=== PATIENT | female | born 1980 | race Caucasian/White ===

== ENCOUNTER 2017-06-27 22:26 | Emergency (ER) | payer BC, MEDICAID ==
[2017-06-28 00:04] LABS: ABSOLUTE EOSINOPHILS # (AUTO) 0.2 10^3/uL (0.0-0.6); ABSOLUTE LYMPHOCYTES (AUTO) 1.4 10^3/uL (0.5-4.7); ABSOLUTE MONOCYTES (AUTO) 0.3 10^3/uL (0.1-1.4); ABSOLUTE NEUT (AUTO) 4.4 10^3/uL (1.7-8.2); BASOPHILS % (AUTO) 0.4 % (0-2); EOSINOPHILS % (AUTO) 3.2 % (0-6); HEMATOCRIT 35.8 % (36.0-47.0); HEMOGLOBIN 12.7 g/dL (12.0-15.5); HGB HCT DIFFERENCE 2.3; LYMPHOCYTES % (AUTO) 21.8 % (13-45); MEAN CORPUSCULAR HGB CONC 35.5 g/dL (32.0-36.0); MEAN CORPUSCULAR VOLUME 90 fl (80-97); MONOCYTES % (AUTO) 5.4 % (3-13); RED BLOOD COUNT 3.98 10^6/uL (3.72-5.28); SEGMENTED NEUTROPHILS % (AUTO) 69.2 % (42-78); WHITE BLOOD COUNT 6.4 10^3/uL (4.0-10.5)
--- NOTE | 2017-06-28 00:04 | RADIOLOGY REPORT (SQ) ---
EXAM DESCRIPTION: CHEST PA/LAT COMPLETED DATE/TIME: 06/27/2017 11:28 pm REASON FOR STUDY: IVC COMPARISON: January 2010 EXAM PARAMETERS: NUMBER OF VIEWS: two views TECHNIQUE: Digital Frontal and Lateral radiographic views of the chest acquired. RADIATION DOSE: NA LIMITATIONS: none FINDINGS: LUNGS AND PLEURA: No opacities, masses or pneumothorax. No pleural effusion. MEDIASTINUM AND HILAR STRUCTURES: No masses or contour abnormalities. HEART AND VASCULAR STRUCTURES: Heart normal size. No evidence for failure. BONES: No acute findings. HARDWARE: None in the chest. OTHER: No other significant finding. IMPRESSION: NO SIGNIFICANT RADIOGRAPHIC FINDING IN THE CHEST. TECHNICAL DOCUMENTATION: JOB ID: [id number] Last Size- All Rights Reserved
[2017-06-28 00:15] LABS: APPEARANCE,URINE CLOUDY; BILIRUBIN,URINE NEGATIVE (NEGATIVE); GLUCOSE, URINE NEGATIVE (NEGATIVE); KETONES,URINE NEGATIVE (NEGATIVE); LEUKOCYTE ESTERASE,URINE LARGE (NEGATIVE); NITRITE,URINE NEGATIVE (NEGATIVE); PROTEIN,URINE NEGATIVE (NEGATIVE); URINE SPECIFIC GRAVITY 1.005; UROBILINOGEN,URINE NEGATIVE mg/dL (<2.0)
[2017-06-28 00:17] LABS: ALANINE AMINOTRANSFERASE 27 U/L (9-52); ALBUMIN 4.8 g/dL (3.5-5.0); ALKALINE PHOSPHATASE 72 U/L (38-126); ANION GAP 13 (5-19); ASPARTATE AMINO TRANSFERASE 18 U/L (14-36); BILIRUBIN,DIRECT 0.4 mg/dL (0.0-0.4); BILIRUBIN,TOTAL 0.4 mg/dL (0.2-1.3); BLOOD UREA NITROGEN 7 mg/dL (7-20); CALCIUM 10.4 mg/dL (8.4-10.2); CARBON DIOXIDE 29 mmol/L (22-30); CHLORIDE 99 mmol/L (98-107); CREATINE KINASE 46 U/L (30-135); GLUCOSE 99 mg/dL (75-110); POTASSIUM 4.1 mmol/L (3.6-5.0); SODIUM 141.3 mmol/L (137-145); TOTAL PROTEIN 7.9 g/dL (6.3-8.2)
--- NOTE | 2017-06-28 00:18 | ER Document Report ---
ED Psych Disorder / Suicide - General Chief Complaint: PSYCH EVALUATION Stated Complaint: LUIS REYES Time Seen by Provider: 06/28/17 00:06 Notes: The patient is a 37-year-old female, PMHx schizophrenia, depression, prior opioid abuse (now on Suboxone), who presents with suicidal ideation and depression. She called mobile crisis to obtain help. She was hospitalized and released 2 weeks ago to psychiatric hospital for similar thoughts and she was given an IM shot of Invega. Patient is hearing voices that are telling her to hurt herself, but she does not have a specific plan. Her depression worsened since April 22 when she broke up with her longtime boyfriend of 13 years. Patient denies current substance abuse, daily alcohol, homicidal ideation, fevers, neck stiffness or headache. TRAVEL OUTSIDE OF THE [place] IN LAST 30 DAYS: No Past Medical History - General Information source: Patient - Social History Smoking Status: Never Smoker Drug Abuse: Heroin - Last used 8 years ago Family History: Reviewed & Not Pertinent Patient has suicidal ideation: Yes Patient has homicidal ideation: Yes Renal/ Medical History: Denies: Hx Peritoneal Dialysis Review of Systems - Review of Systems Notes: REVIEW OF SYSTEMS: CONSTITUTIONAL: -fevers, -chills EENT: -eye pain, -difficulty swallowing, -nasal congestion CARDIOVASCULAR:-chest pain, -syncope. RESPIRATORY: -cough, -SOB GASTROINTESTINAL: -abdominal pain, - nausea, -vomiting, -diarrhea GENITOURINARY: -dysuria, -hematuria MUSCULOSKELETAL: -back pain, -neck pain SKIN: -rash or skin lesions. HEMATOLOGIC: -easy bruising or bleeding. LYMPHATIC: -swollen, enlarged glands. NEUROLOGICAL: -altered mental status or loss of consciousness, -headache, - neurologic symptoms PSYCHIATRIC: -anxiety, +depression, +SI ALL OTHER SYSTEMS REVIEWED AND NEGATIVE. Physical Exam - Vital signs Vitals: Temp Pulse Resp BP Pulse Ox 98.4 F 78 16 130/86 H 99 06/27/17 23:12 06/27/17 23:12 06/27/17 23:12 06/27/17 23:12 06/27/17 23:12 - Notes Notes: PHYSICAL EXAMINATION: GENERAL: Well-appearing, well-nourished and in no acute distress. HEAD: Atraumatic, normocephalic. EYES: Pupils equal round and reactive to light, extraocular movements intact, sclera anicteric, conjunctiva are normal. ENT: nares patent, oropharynx clear without exudates. Moist mucous membranes. NECK: Normal range of motion, supple without lymphadenopathy LUNGS: Breath sounds clear to auscultation bilaterally and equal. No wheezes rales or rhonchi. HEART: Regular rate and rhythm without murmurs ABDOMEN: Soft, nontender, normoactive bowel sounds. No guarding, no rebound. No masses appreciated. EXTREMITIES: Normal range of motion, no pitting or edema. No cyanosis. NEUROLOGICAL: Cranial nerves grossly intact. Normal speech, normal gait. Normal sensory and motor exams. PSYCH: Depressed mood. Suicidal thoughts. SKIN: Warm, Dry, normal turgor, no rashes or lesions noted. Course - Re-evaluation Re-evalutation: 06/28/17 00:28 Pt presents with suicidal ideation and depression. She is hearing voices while in the ER telling her to hurt herself. Will place patient on IVC and have her evaluated by mental health in the morning. - Vital Signs Vital signs: Temp Pulse Resp BP Pulse Ox 98.4 F 78 16 130/86 H 99 06/27/17 23:12 06/27/17 23:12 06/27/17 23:12 06/27/17 23:12 06/27/17 23:12 - Laboratory Result Diagrams: 06/27/17 23:50 06/27/17 23:50 Laboratory results interpreted by me: 06/27/17 06/27/17 06/27/17 23:50 23:50 23:50 Hct 35.8 L Calcium 10.4 H Urine Blood Ur Leukocyte Esterase Salicylates < 1.0 L Acetaminophen < 10 L 06/27/17 23:55 Hct Calcium Urine Blood SMALL H Ur Leukocyte Esterase LARGE H Salicylates Acetaminophen Discharge - Discharge Clinical Impression: Suicidal ideation Condition: Stable Disposition: PSYCH HOSP/UNIT
[2017-06-28 00:29] LABS: CREATINE KINASE MB 1.22 ng/mL (<4.55)
[2017-06-28 00:30] LABS: TROPONIN I < 0.012 ng/mL
[2017-06-28 00:31] LABS: ALCOHOL < 10 mg/dL (NONE DETECTED)
[2017-06-28 01:39] LABS: URINE BARBITURATES SCREEN NEGATIVE; URINE METHADONE SCREEN NEGATIVE; URINE OPIATES LOW NEGATIVE; URINE PHENCYCLIDINE SCREEN NEGATIVE
--- NOTE | 2017-06-28 10:14 | ER Document Report ---
Doctor's Note Notes: 06/28/17 10:10 Rounds: Chart reviewed and patient interviewed. Patient is walking about her room aimlessly. Answers questions and recalls that she was hospitalized a couple of weeks ago. Affect flat. Patient is being evaluated for suicidal thoughts and a history of schizophrenia and depression and opioid abuse. Patient's urinalysis looks like a UTI. Patient says she is not having any symptoms that would suggest a UTI. I have ordered a culture and starting the patient on Macrobid 100 mg twice a day. Patient's vital signs are normal except for a pulse of 106. Patient appears to be medically stable for transfer or discharge. Dawood Cardenas MD
[2017-06-28] MEDS ORDERED: NITROFURANTOIN MONOHYD/M-CRYST 100 MG CAPSULE PO SCH (10:15)
--- NOTE | 2017-06-28 12:24 | EKG REPORT ---
SEVERITY:- NORMAL ECG - SINUS RHYTHM : Confirmed by: Yancy Anthony MD 28-Jun-2017 12:23:39
[2017-06-28 14:17] VITALS: BP 132/88
== END 2017-06-28 14:19 | disposition home or self-care (01) ==
LOC: ER 22:26
DX: N39.0 Urinary tract infection, site not specified (principal); F31.30 Bipolar disorder, current episode depressed, mild or moderate severity, unspecified; R45.851 Suicidal ideations; Z65.9 Problem related to unspecified psychosocial circumstances; F11.20 Opioid dependence, uncomplicated
CPT/HCPCS: 36415; 71020; 80053; 80307; 81001; 81025; 82550; 82553; 84484; 85025; 87086; 93005; 93010; 99285

== ENCOUNTER 2019-11-15 02:44 | Emergency (ER) | payer MEDICAID ==
[2019-11-15 03:06] VITALS: BP 122/77
[2019-11-15 08:07] LABS: ABSOLUTE MONOCYTES (AUTO) 0.4 10^3/uL (0.1-1.4); ABSOLUTE NEUT (AUTO) 5.5 10^3/uL (1.7-8.2); BASOPHILS % (AUTO) 0.4 % (0-2); EOSINOPHILS % (AUTO) 0.1 % (0-6); HEMATOCRIT 39.3 % (36.0-47.0); HEMOGLOBIN 13.6 g/dL (12.0-15.5); LYMPHOCYTES % (AUTO) 14.7 % (13-45); MEAN CORPUSCULAR HEMOGLOBIN 30.2 pg (27.0-33.4); MEAN CORPUSCULAR HGB CONC 34.7 g/dL (32.0-36.0); MEAN CORPUSCULAR VOLUME 87 fl (80-97); MONOCYTES % (AUTO) 5.1 % (3-13); PLATELET COUNT 220 10^3/uL (150-450); RED BLOOD COUNT 4.51 10^6/uL (3.72-5.28); RED CELL DISTRIBUTION WIDTH 13.1 % (11.5-14.0); SEGMENTED NEUTROPHILS % (AUTO) 79.7 % (42-78); TOTAL CELLS COUNTED % (AUTO) 100 %; WHITE BLOOD COUNT 6.9 10^3/uL (4.0-10.5)
[2019-11-15 08:39] LABS: ALBUMIN 4.1 g/dL (3.5-5.0); ALKALINE PHOSPHATASE 91 U/L (38-126); ANION GAP 10 (5-19); ASPARTATE AMINO TRANSFERASE 24 U/L (14-36); BILIRUBIN,DIRECT 0.3 mg/dL (0.0-0.4); BILIRUBIN,TOTAL 0.5 mg/dL (0.2-1.3); BLOOD UREA NITROGEN 12 mg/dL (7-20); CALCIUM 9.5 mg/dL (8.4-10.2); CARBON DIOXIDE 29 mmol/L (22-30); CHLORIDE 103 mmol/L (98-107); GLUCOSE 153 mg/dL (75-110); POTASSIUM 3.6 mmol/L (3.6-5.0); TOTAL PROTEIN 7.8 g/dL (6.3-8.2)
--- NOTE | 2019-11-15 10:02 | ER Document Report ---
ED General <ABRAHAM MENDES - Last Filed: 11/15/19 12:53> - General TRAVEL OUTSIDE OF THE [place] IN LAST 30 DAYS: No <KATHY RUIZ - Last Filed: 11/15/19 20:38> - General Chief Complaint: Dizziness Stated Complaint: MALAISE,DIZZINESS Time Seen by Provider: 11/15/19 09:44 Primary Care Provider: [facility] [Outside] - Follow up as needed Notes: Patient is a 39-year-old female who presents to the emergency department with a chief complaint of "weakness." Patient states that she has felt weak for the past week. Patient initially did not elaborate much on her symptoms. Patient states that she does have a history of schizophrenia and she is not currently on her medications. She states that she ran out of her medications. She does not know which medication she is supposed to take. Patient is requesting to go to [facility] in [place]. Patient also admitted that she is a heroin addict and she last took heroin yesterday. Patient states that she has felt nausea and vomited, but she was able to tolerate juice and crackers here in the emergency department keep them down. Patient states that she is homeless. Patient states that she is suicidal, but does not have any plan at this time. (KATHY RUIZ) - Related Data Allergies/Adverse Reactions: No Known Allergies Allergy (Verified 11/15/19 15:13) Past Medical History - General Information source: Patient - Social History Smoking Status: Former Smoker Family History: Reviewed & Not Pertinent Patient has suicidal ideation: No Patient has homicidal ideation: No Renal/ Medical History: Denies: Hx Peritoneal Dialysis Psychiatric Medical History: Reports: Hx Depression - schizophrenia <KATHY RUIZ - Last Filed: 11/15/19 20:38> Review of Systems <KATHY RUIZ - Last Filed: 11/15/19 20:38> - Review of Systems Notes: REVIEW OF SYSTEMS: CONSTITUTIONAL : Denies recent illness. Denies recent unintentional weight loss. Denies fever, chills, or sweats. EENT: Denies eye, ear, throat, or mouth pain, discharge, or symptoms. Denies nasal or sinus congestion. CARDIOVASCULAR: Denies chest pain. RESPIRATORY: Denies shortness of breath, cough, congestion, difficulty breathing, or wheezing. GASTROINTESTINAL: Denies nausea, vomiting, and diarrhea. Denies abdominal pain. Denies constipation. GENITOURINARY: Denies difficulty urinating, burning, blood in urine, urgency or frequency. MUSCULOSKELETAL: Denies neck and back pain. Denies joint pain or swelling. SKIN: Denies rash, itchiness, or lesions HEMATOLOGIC : Denies easy bruising or bleeding. LYMPHATIC: Denies swollen, painful, enlarged glands. NEUROLOGICAL: Denies no numbness or tingling denies weakness. Denies headache. Denies altered mental status. Denies alteration in speech. PSYCHIATRIC: See HPI. All other systems reviewed and negative. (KATHY RUIZ) Physical Exam <KATHY RUIZ - Last Filed: 11/15/19 20:38> - Vital signs Vitals: Temp Pulse Resp BP Pulse Ox 98.6 F 96 16 122/77 99 11/15/19 03:04 11/15/19 03:04 11/15/19 03:04 11/15/19 03:04 11/15/19 03:04 - Notes Notes: PHYSICAL EXAMINATION: GENERAL: Appears well, healthy, well-nourished, no acute distress. HEAD: Normocephalic, atraumatic. EYES: PERRL, conjunctiva normal, all extraocular movements intact, sclera nonicteric ENT: Moist mucous membranes. NECK: Supple, no noticeable swelling, redness, rash. Normal range of motion. LUNGS: Equal breath sounds bilaterally and clear to auscultation. No wheezes rales or rhonchi. CARDIOVASCULAR: S1-S2, regular rate, regular rhythm. Radial pulses 2+, normal. ABDOMEN: Normoactive bowel sounds. Soft, nontender, no guarding, no rebound tenderness, and no masses palpated. EXTREMITIES: Normal strength and range of motion, no pitting or edema. No cyanosis. NEUROLOGICAL: Moves all extremities upon command. Strength 5/5 in all extremities. PSYCH: Withdrawn, not very talkative. SKIN: Warm, dry. No rash, lesions, ulcerations noted. Normal skin turgor. (KATHY RUIZ) Course - Laboratory Result Diagrams: 11/15/19 07:55 11/15/19 07:55 <ABRAHAM MENDES - Last Filed: 11/15/19 12:53> - Laboratory Result Diagrams: 11/15/19 07:55 11/15/19 07:55 <JOSEPHALFREDOKATHY Corrie - Last Filed: 11/15/19 20:38> - Re-evaluation Re-evalutation: 11/15/19 20:37 Patient's hematology does not show a leukocytosis, but she has a left shift with neutrophils at 79.7%. Chemistries are unremarkable. Urinalysis shows a moderate amount of leukocytes, although this is a contaminated sample as the patient has 244 squamous cells. She also has yeast. Patient will be started on Keflex. Patient is also positive for opiates. Mental health has evaluated the patient and they state that she is stable for discharge mental health [facility]. She was given resources for outpatient care. I have a very low suspicion for any life-threatening etiology at this time. Follow-up precautions were given. Verbal discharge instructions were given to the patient. They verbalized understanding. They are stable for discharge. (KATHY RUIZ) - Vital Signs Vital signs: Temp Pulse Resp BP Pulse Ox 98.7 F 89 16 122/77 95 11/15/19 15:22 11/15/19 15:22 11/15/19 15:22 11/15/19 03:04 11/15/19 15:22 - Laboratory Laboratory results interpreted by me: 11/15/19 11/15/19 11/15/19 07:55 07:55 07:55 Seg Neutrophils % 79.7 H Creatinine 0.51 L Glucose 153 H Urine Protein Urine Ketones Urine Blood Urine Urobilinogen Ur Leukocyte Esterase Salicylates < 1.0 L Acetaminophen < 10 L 11/15/19 11:15 Seg Neutrophils % Creatinine Glucose Urine Protein 30 H Urine Ketones TRACE H Urine Blood SMALL H Urine Urobilinogen 4.0 H Ur Leukocyte Esterase MODERATE H Salicylates Acetaminophen - EKG Interpretation by Me Additional EKG results interpreted by me: 11/15/19 12:46 Sinus tachycardia. Heart rate 102. VA 116; QRS 82; QT 368; QTc 480. No change from previous EKG done on 06/28/2017. (KATHY RUIZ) Discharge <ABRAHAM MENDES - Last Filed: 11/15/19 12:53> <KATHY RUIZ - Last Filed: 11/15/19 20:38> - Discharge Clinical Impression: Urinary tract infection Qualifiers: Urinary tract infection type: acute cystitis Hematuria presence: without hematuria Qualified Code(s): N30.00 - Acute cystitis without hematuria Condition: Stable Disposition: HOME, SELF-CARE Additional Instructions: You have been evaluated by both medical and behavioral health teams for suicidal ideation and have been deemed appropriate for discharge. While in the emergency department you received the following services: Medical screening and assessment, nursing services, dietary services, pharmacological services, one-on-one counseling and/or psychotherapy, and environmental services. You were provided with resources for outpatient mental health resource list, substance abuse treatment/detox, and a community resources. You are encouraged to follow up with an outpatient mental health provider for mental health services to induce substance abuse treatment. The contact information for mobile crisis has been provided. Your urine shows findings consistent with a urinary tract infection. Please take all the antibiotics as directed even if your symptoms have improved. Please follow-up with your primary care physician as needed. Return to emergency room if you develop fever >101F, persistent vomiting, become lethargi c, have severe pain in your sides, or any other symptoms that are concerning to you. Also have a yeast infection. Please take your medication as prescribed. NARCOTIC / OPIOD ABUSE: Narcotics and opiods are pain-relieving drugs that are often abused. They are addicting. Narcotics cause euphoria, but it often takes increasing amounts to "feel good" and avoid withdrawal symptoms. Overdose of narcotics causes small pupils, coma, and decreased breathing. It's a common cause of . Purity of street narcotics is unpredictable. Injection of narcotics is risky for abscesses, endocarditis (heart infection), pneumonia, and AIDS. Withdrawal from narcotics causes goose bumps, watery mouth, sweating, nasal congestion, muscle aches, abdominal cramps, vomiting, and diarrhea. There's often restlessness and confusion. Treatment programs are available, but you must make the decision to quit. Medication (such as clonidine) can be prescribed to control the symptoms of withdrawal. SUICIDAL IDEATION: Suicidal ideation is a common medical term for thoughts about suicide, which may be as detailed as a formulated plan, without the suicidal act itself. Although most people who undergo suicidal ideation do not commit suicide, some go on to make suicide attempts. The range of suicidal ideation varies greatly from fleeting to detailed planning, role playing, and unsuccessful attempts. While thoughts about suicide are common, most people do not carry out serious actions to commit suicide. Based upon your evaluation and discussion with you, we do not believe you are currently at risk to act upon your thoughts of suicide. You have agreed to return to the Emergency Department, at any time, if you feel inclined to act upon your suicidal thoughts. AT ANY TIME, IF YOUR SYMPTOMS CHANGE SIGNIFICANTLY OR WORSEN OR YOU DEVELOP NEW SYMPTOMS, RETURN TO THE EMERGENCY DEPARTMENT IMMEDIATELY FOR RE-EVALUATION. Prescriptions: Fluconazole [Diflucan 100 mg Tablet] 200 mg PO ASDIR #1 tablet Cephalexin [Keflex] 500 mg PO BID #14 capsule Referrals: [facility] [Outside] - Follow up as needed
[2019-11-15] MEDS ORDERED: HALOPERIDOL LACTATE INJ 5 MG/1 ML VIAL IM ONE (11:03)
[2019-11-15 11:13] LABS: ACETAMINOPHEN < 10 ug/mL (10-30); ALCOHOL < 10 mg/dL (NONE DETECTED); SALICYLATE < 1.0 mg/dL (2.0-20.0)
[2019-11-15 11:36] LABS: APPEARANCE,URINE TURBID; BILIRUBIN,URINE NEGATIVE (NEGATIVE); COLOR,URINE YELLOW; GLUCOSE, URINE NEGATIVE (NEGATIVE); KETONES,URINE TRACE mg/dL (NEGATIVE); LEUKOCYTE ESTERASE,URINE MODERATE (NEGATIVE); NITRITE,URINE NEGATIVE (NEGATIVE); PROTEIN,URINE 30 mg/dL (NEGATIVE); URINE SPECIFIC GRAVITY 1.013
[2019-11-15] MEDS ORDERED: CEFTRIAXONE INJ 1000 MG VIAL IM ONE (12:09)
[2019-11-15] MEDS ORDERED: LIDOCAINE 1% INJ-PF (10 MG/ML) 30 ML SDV INJ ONE (12:09)
[2019-11-15] MEDS ORDERED: FLUCONAZOLE 100 MG TABLET PO ONE (12:09)
--- NOTE | 2019-11-15 12:53 | PSYCHOLOGICAL NOTE ---
Psych Note - Psych Note Date seen by psych provider: 11/15/19 Time seen by psych provider: 11:20 Psych Note: Patient is a 39-year-old female who presents to ED via EMS for suicidal ideation. Patient was last seen by behavioral health team in 06/30/17 with similar etiology. Patient reports "not feeling great." Patient states she is "mentally confused and weak." Patient states she is experiencing "thoughts that I would not normally think." When asked to elaborate, patient states she saw her mother and thought "she's ugly." Patient states she loves her mother and doesn't think she is ugly. When asked for other examples of thoughts you would not normally think, patient replied, "I looked at my boyfriend and thought I want to have sex with you right now." Patient reports she has sex with her boyfriend on a regular basis. Patient reports heroin use on yesterday. Patient denies suicidal ideation. When asked about auditory/visual hallucinations, patient referenced "looking at people thinking things I wouldn't normally think." Patient denies homicidal ideation. When asked how ED could help, patient requested food and drink. Patient also requested to be transferred to [facility]. Clinician informed patient she could have someone take her to [facility] if she believes that is what she needs. Patient states she lives with her boyfriend, who provides for her basic needs. Patient states she is not currently linked with a mental health provider for medication management or mental health services. Patient reports a mental health diagnosis of Schizophrenia. Patient states she was linked with [facility], but has not been there in 5 months. The [place] Controlled Database shows patient was prescribed a 4 days of Suboxone with last prescription filled on 10/29/2019. Patient's urine drug screen is positive for opioids. Patient requested for clinician to cover her up with a blanket, to which clinician declined. Patient replied that the nurse "had done it." Clinician stated that patient is capable of covering herself up as evidenced by patient covering herself with the blanket. Patient requested clinician close the door. Clinician informed patient that hospital policy states the door has to remain open when there is a behavioral health consult placed. Patient became agitated and stated that she did not need the consult, however quickly changed her mind. When patient was presented with discharge, patient replied, "you can't discharge me." Clinician replied she will be discharged with medically cleared. Patient stated she can't contact her boyfriend because they were arguing and her father will not come pick her up. Patient begged clinician to "take me to [facility]." Clinician again stated that was not possible. Patient is alert and oriented to person, place, time and circumstance. Patient's mood is withdrawn, however when patient' became agitated she was able to raise her voice to get staff attention and make her needs known. Patient denies suicidal and homicidal ideations. Delusions are absent and behavior is congruent with an intact reality based presentation (i.e., organized and linear through processes). There is no observed behavior that suggests patient is responding to internal stimuli. Patient is able to engage in organized, rational thought processes. Patient is able to express needs and wants in a logical manner. Patient denies current auditory and visual hallucinations. Eye contact is limited. Conversational speech is within normal rate, tone, and prosody, however clinician notes patient repeats questions before answering. Intellectual ability appears to be within average range. Attention and concentration are fair. Insight, judgment and impulse control are currently fair. Impression/Plan: Patient is cleared from acute psychiatric services. Patient does not meet minimum threshold for involuntary commitment, therefore a referral to [facility] is not appropriate (denies SI,HI, no observed psychosis. Patient denies suicidal ideation with clinician but endorsed suicidal ideation with no plan to attending physician. There is no observed behavior that suggests patient is responding to internal stimuli. Patient engaged in organized, rational, linear thought processes and was able to express needs and wants in a logical manner as evidenced by her desire for transportation to [facility], desire for a shower, declining discharge, and request for food, and drink. Patient endorses auditory hallucinations however patient's disclosure of symptoms are not congruent with known manifestations of auditory/visual hallucinations. Patient was provided with an outpatient mental health resource list, substance abuse treatment list, and a street sheet resource. Clinician encouraged patient to contact [facility] for medication management (to include Suboxone) and mental health services. Clinician highlighted the contact information for the homeless assisted on the street sheet resource. Patient was informed of mobile crisis services. Dr. Jaramillo was consulted on the care and management of this patient; attending physician is in agreement with recommendations and disposition.
[2019-11-15 13:02] LABS: URINE AMPHETAMINES SCREEN NEGATIVE; URINE BARBITURATES SCREEN NEGATIVE; URINE BENZODIAZEPINES SCREEN NEGATIVE; URINE MARIJUANA (THC) SCREEN NEGATIVE; URINE METHADONE SCREEN NEGATIVE; URINE PHENCYCLIDINE SCREEN NEGATIVE
[2019-11-15 13:12] LABS: URINE COCAINE SCREEN NEGATIVE
--- NOTE | 2019-11-15 20:24 | EKG REPORT ---
SEVERITY:- ABNORMAL ECG - SINUS TACHYCARDIA NONSPECIFIC ST-T CHANGES- INFERIOR LEADS : Confirmed by: Ousmane Campbell MD 15-Nov-2019 20:22:56
== END 2019-11-15 14:50 | disposition home or self-care (01) ==
LOC: ER 02:44
DX: N30.00 Acute cystitis without hematuria (principal); R42 Dizziness and giddiness; R53.1 Weakness
CPT/HCPCS: 93005; 99285; 96372; 36415; 80307 ×4; 85025; 80053; 81001; 93010; J1630; J3490 ×2; J0696

== ENCOUNTER 2019-11-15 14:56 | Emergency (ER) | payer MEDICAID ==
[2019-11-15 15:05] VITALS: BP 107/83
--- NOTE | 2019-11-15 15:19 | ER Document Report ---
ED Medical Screen (RME) - General Chief Complaint: Weakness Stated Complaint: WEAKNESS Time Seen by Provider: 11/15/19 15:14 TRAVEL OUTSIDE OF THE [place] IN LAST 30 DAYS: No - HPI Notes: 11/15/19 15:17 Patient is a 39-year-old female heroin user and currently homeless who was just cleared by medical and mental health rechecked her self back in for feeling "disoriented, confused, weak." Charge nurse has been notified and they will work with /case management. I have treated and performed a rapid initial assessment of this patient. A comprehensive ED assessment and evaluation of the patient, analysis of test results and completion of medical decision making process will be conducted by additional ED providers. PHYSICAL EXAMINATION: GENERAL: Well-appearing, well-nourished and in no acute distress. A&Ox4. Answers questions appropriately. - Related Data Allergies/Adverse Reactions: No Known Allergies Allergy (Verified 11/15/19 15:13) Past Medical History Renal/ Medical History: Denies: Hx Peritoneal Dialysis Psychiatric Medical History: Reports: Hx Depression - schizophrenia Physical Exam - Vital signs Vitals: Temp Pulse Resp BP Pulse Ox 99.2 F 69 20 107/83 98 11/15/19 15:02 11/15/19 15:02 11/15/19 15:02 11/15/19 15:02 11/15/19 15:02 Course - Vital Signs Vital signs: Temp Pulse Resp BP Pulse Ox 99.2 F 69 20 107/83 98 11/15/19 15:02 11/15/19 15:02 11/15/19 15:02 11/15/19 15:02 11/15/19 15:02
--- NOTE | 2019-11-15 16:26 | ER Document Report ---
HPI - HPI Time Seen by Provider: 11/15/19 15:14 Pain Level: Denies Context: Patient is a 39-year-old female who presents to the emergency department with a chief complaint of weakness and dizziness. She has a history of heroin use. She was seen here in the emergency department by myself. Please see previous note from last visit, which was earlier today. - CONSTITUTIONAL Constitutional: DENIES: Fever, Chills - EENT EENT: DENIES: Sore Throat, Ear Pain, Congestion - NEURO Neurology: REPORTS: Weakness. DENIES: Headache - CARDIOVASCULAR Cardiovascular: DENIES: Chest pain - RESPIRATORY Respiratory: DENIES: Trouble Breathing, Coughing - GASTROINTESTINAL Gastrointestinal: DENIES: Abdominal Pain, Nausea, Patient vomiting - MUSCULOSKELETAL Musculoskeletal: DENIES: Extremity pain, Back Pain - DERM Skin Color: Normal Skin Problems: None Past Medical History - General Information source: Patient - Social History Smoking Status: Current Every Day Smoker Drug Abuse: Heroin Family History: Reviewed & Not Pertinent Patient has suicidal ideation: No Patient has homicidal ideation: No Renal/ Medical History: Denies: Hx Peritoneal Dialysis Psychiatric Medical History: Reports: Hx Depression - schizophrenia Vertical Provider Document - CONSTITUTIONAL Agree With Documented VS: Yes Exam Limitations: No Limitations General Appearance: No Apparent Distress - INFECTION CONTROL TRAVEL OUTSIDE OF THE [place] IN LAST 30 DAYS: Yes - HEENT HEENT: Atraumatic, Normocephalic, PERRLA - NECK Neck: Normal Inspection - RESPIRATORY Respiratory: Breath Sounds Normal, No Respiratory Distress - CARDIOVASCULAR Cardiovascular: Regular Rate, Regular Rhythm Pulses: Normal: Radial - MUSCULOSKELETAL/EXTREMETIES Musculoskeletal/Extremeties: FROM - NEURO Level of Consciousness: Awake, Alert, Appropriate Motor/Sensory: No Motor Deficit, No Sensory Deficit - DERM Integumentary: Warm, Dry, No Rash Course - Re-evaluation Re-evalutation: 11/15/19 16:24 unit manager rn, Ramsey Hilario RN visited with the patient and spoke to her about resources. I also educated the patient on resources. I have very low suspicion for any life-threatening etiology at this time. Patient denies any suicidal or homicidal ideation. Follow-up precautions were given. Verbal discharge instructions were given to the patient. They verbalized understanding. They are stable for discharge. - Vital Signs Vital signs: Temp Pulse Resp BP Pulse Ox 99.2 F 69 20 107/83 98 11/15/19 15:02 11/15/19 15:02 11/15/19 15:02 11/15/19 15:02 11/15/19 15:02 Discharge - Discharge Clinical Impression: Weakness Condition: Stable Disposition: HOME, SELF-CARE Additional Instructions: You are seen here in the emergency department again for the same symptoms. Please get your prescriptions filled. You received resources on where to go for help on mental health and substance abuse.
== END 2019-11-15 16:34 | disposition home or self-care (01) ==
LOC: ER 14:56
DX: R53.1 Weakness (principal); R42 Dizziness and giddiness; Z59.0 Homelessness
CPT/HCPCS: 99283

== ENCOUNTER 2019-11-20 09:54 | Emergency (ER) | payer MEDICAID ==
[2019-11-20 10:30] VITALS: BP 134/78
--- NOTE | 2019-11-20 10:38 | ER Document Report ---
ED Medical Screen (RME) - General Chief Complaint: General Weakness Stated Complaint: GENERAL WEAKNESS Time Seen by Provider: 11/20/19 10:34 Notes: 39-year-old female presents with generalized weakness for 5 days. Patient states she has had the "flu" for 5 days. Pt is poor historian and requires being asked questions multiple times. RRR. Lungs CTA bilaterally. I have greeted and performed a rapid initial assessment of this patient. A comp rehensive ED assessment and evaluation of the patient, analysis of test results and completion of the medical decision making process with be conducted by additional ED providers. TRAVEL OUTSIDE OF THE [place] IN LAST 30 DAYS: Yes - Related Data Allergies/Adverse Reactions: No Known Allergies Allergy (Verified 11/20/19 10:32) Past Medical History Renal/ Medical History: Denies: Hx Peritoneal Dialysis Psychiatric Medical History: Reports: Hx Depression - schizophrenia Physical Exam - Vital signs Vitals: Temp Pulse Resp BP Pulse Ox 98.4 F 95 18 134/78 H 97 11/20/19 10:24 11/20/19 10:24 11/20/19 10:24 11/20/19 10:24 11/20/19 10:24 Course - Vital Signs Vital signs: Temp Pulse Resp BP Pulse Ox 98.4 F 95 18 134/78 H 97 11/20/19 10:24 11/20/19 10:24 11/20/19 10:24 11/20/19 10:24 11/20/19 10:24
[2019-11-20 12:02] LABS: ABSOLUTE EOSINOPHILS # (AUTO) 0.2 10^3/uL (0.0-0.6); ABSOLUTE LYMPHOCYTES (AUTO) 2.2 10^3/uL (0.5-4.7); ABSOLUTE MONOCYTES (AUTO) 0.7 10^3/uL (0.1-1.4); ABSOLUTE NEUT (AUTO) 7.7 10^3/uL (1.7-8.2); BASOPHILS % (AUTO) 0.2 % (0-2); EOSINOPHILS % (AUTO) 1.5 % (0-6); HEMATOCRIT 44.4 % (36.0-47.0); HEMOGLOBIN 15.6 g/dL (12.0-15.5); LYMPHOCYTES % (AUTO) 20.8 % (13-45); MEAN CORPUSCULAR HEMOGLOBIN 30.6 pg (27.0-33.4); MEAN CORPUSCULAR HGB CONC 35.2 g/dL (32.0-36.0); MEAN CORPUSCULAR VOLUME 87 fl (80-97); MONOCYTES % (AUTO) 6.4 % (3-13); PLATELET COUNT 254 10^3/uL (150-450); RED BLOOD COUNT 5.11 10^6/uL (3.72-5.28); RED CELL DISTRIBUTION WIDTH 13.1 % (11.5-14.0); SEGMENTED NEUTROPHILS % (AUTO) 71.1 % (42-78); TOTAL CELLS COUNTED % (AUTO) 100 %; WHITE BLOOD COUNT 10.8 10^3/uL (4.0-10.5)
[2019-11-20 12:21] LABS: A TYPE INFLUENZA AG NEGATIVE (NEGATIVE); B INFLUENZA AG NEGATIVE (NEGATIVE)
[2019-11-20 12:23] LABS: ALBUMIN 4.7 g/dL (3.5-5.0); ALKALINE PHOSPHATASE 100 U/L (38-126); ANION GAP 10 (5-19); ASPARTATE AMINO TRANSFERASE 27 U/L (14-36); BILIRUBIN,TOTAL 0.8 mg/dL (0.2-1.3); BLOOD UREA NITROGEN 17 mg/dL (7-20); CALCIUM 9.9 mg/dL (8.4-10.2); CARBON DIOXIDE 28 mmol/L (22-30); CHLORIDE 102 mmol/L (98-107); GLUCOSE 88 mg/dL (75-110); POTASSIUM 4.4 mmol/L (3.6-5.0); TOTAL PROTEIN 8.6 g/dL (6.3-8.2)
[2019-11-20 12:24] LABS: URINE AMPHETAMINES SCREEN NEGATIVE; URINE BARBITURATES SCREEN NEGATIVE; URINE BENZODIAZEPINES SCREEN NEGATIVE; URINE COCAINE SCREEN NEGATIVE; URINE MARIJUANA (THC) SCREEN NEGATIVE; URINE METHADONE SCREEN NEGATIVE; URINE PHENCYCLIDINE SCREEN NEGATIVE
--- NOTE | 2019-11-20 14:26 | ER Document Report ---
Entered by CAMDEN ALVARADO SCRIBE 11/20/19 [id number] Acting as scribe for:SREE FIGUEROA DO ED General - General Chief Complaint: Flu Symptoms Stated Complaint: GENERAL WEAKNESS Time Seen by Provider: 11/20/19 10:34 Information source: Patient Notes: This 39 year old female patient presents to the emergency department today with complaints of feeling generally weak for x10 days. Patient was seen for this x5 days ago twice here in this ED. Patient has a history of heroin abuse although she states that she has not used heroin since that discharge. Patient is an incredibly poor historian so obtaining any meaningful history is difficult. TRAVEL OUTSIDE OF THE [place] IN LAST 30 DAYS: No - Related Data Allergies/Adverse Reactions: No Known Allergies Allergy (Verified 11/20/19 10:32) Past Medical History - General Information source: Patient - Social History Smoking Status: Current Every Day Smoker Cigarette use (# per day): Yes Chew tobacco use (# tins/day): Yes Frequency of alcohol use: Social Drug Abuse: None Family History: Reviewed & Not Pertinent Patient has suicidal ideation: No Patient has homicidal ideation: No Renal/ Medical History: Denies: Hx Peritoneal Dialysis Psychiatric Medical History: Reports: Hx Depression - schizophrenia Review of Systems - Review of Systems Constitutional: See HPI, Malaise EENT: No symptoms reported Cardiovascular: No symptoms reported Respiratory: No symptoms reported Gastrointestinal: No symptoms reported Genitourinary: No symptoms reported Female Genitourinary: No symptoms reported Musculoskeletal: No symptoms reported Skin: No symptoms reported Hematologic/Lymphatic: No symptoms reported Neurological/Psychological: No symptoms reported -: Yes All other systems reviewed and negative Physical Exam - Vital signs Vitals: Temp Pulse Resp BP Pulse Ox 98.4 F 95 18 134/78 H 97 11/20/19 10:24 11/20/19 10:24 11/20/19 10:24 11/20/19 10:24 11/20/19 10:24 - Notes Notes: Physical Exam: General: Alert, appears well. HEENT: Normocephalic. Atraumatic. PERRL. Extraocular movements intact. No posterior oropharynx erythema or exudate, airway is patent. TMs are clear and non-bulging bilaterally. Neck: Supple. Non-tender. Respiratory: No respiratory distress. Clear and equal breath sounds bilaterally. Cardiovascular: Regular rate and rhythm. Abdominal: Normal Inspection. Non-tender. No distension. Normal Bowel Sounds. Back: No gross abnormalities. Extremities: Moves all four extremities. Upper extremities: Normal inspection. Normal ROM. Lower extremities: Normal inspection. No edema. Normal ROM. Neurological: Normal cognition. AAOx4. Normal speech. Psychological: Slow to respond, odd affect. Skin: Warm. Dry. Normal color. Course - Vital Signs Vital signs: Temp Pulse Resp BP Pulse Ox 98.4 F 95 18 134/78 H 97 11/20/19 10:24 11/20/19 10:24 11/20/19 10:24 11/20/19 10:24 11/20/19 10:24 - Laboratory Result Diagrams: 11/20/19 11:45 11/20/19 11:45 Laboratory results interpreted by me: 11/20/19 11/20/19 11:45 11:45 WBC 10.8 H Hgb 15.6 H Total Protein 8.6 H Discharge - Discharge Clinical Impression: Weakness Condition: Good Disposition: HOME, SELF-CARE Instructions: Acetaminophen, Weakness ([facility]) Additional Instructions: Rest, plenty of fluids. Please see the referral doctor or your doctor in follow up. Return here for any problems or any concerns. I personally performed the services described in the documentation, reviewed and edited the documentation which was dictated to the scribe in my presence, and it accurately records my words and actions.
--- NOTE | 2019-11-20 22:37 | EKG REPORT ---
SEVERITY:- ABNORMAL ECG - SINUS RHYTHM SHORT IA INTERVAL, ACCELERATED AV CONDUCTION RIGHT ATRIAL ABNORMALITY [facility] : Confirmed by: Huma Carl 20-Nov-2019 22:37:07
== END 2019-11-20 15:47 | disposition home or self-care (01) ==
LOC: ER 09:54
DX: R53.1 Weakness (principal); R53.81 Other malaise; F17.210 Nicotine dependence, cigarettes, uncomplicated
CPT/HCPCS: 36415; 80053; 80307; 84703; 85025; 87804; 93005; 93010; 99283

== ENCOUNTER 2019-11-20 18:14 | Emergency (ER) | payer MEDICAID ==
--- NOTE | 2019-11-20 19:11 | ER Document Report ---
ED Medical Screen (RME) - General Chief Complaint: Weakness Stated Complaint: WEAKNESS Time Seen by Provider: 11/20/19 18:52 Mode of Arrival: Ambulatory Information source: Patient Notes: 39-year-old female patient presenting to the emergency department chief complaint of weakness. Patient was seen and discharged from this emergency department earlier today. She had a normal work-up at that time. Upon reviewing patient's records patient has a psych history. She is not currently taking any psychiatric medications. She is a poor historian and is unable to thoroughly answer questions regarding the reason she is here today. She has a flight of ideas. Her thoughts appear to be disorganized. Orders were added on to complete the psychiatric order set. Patient will be seen in the back by main side provider. I have greeted and performed a rapid initial assessment of this patient. A comprehensive ED assessment and evaluation of the patient, analysis of test results and completion of the medical decision making process will be conducted by additional ED providers. I have specifically instructed the patient or family members with the patient to immediately return to any nursing staff should anything change in the patient's condition or with their chief complaint. TRAVEL OUTSIDE OF THE [place] IN LAST 30 DAYS: No - Related Data Allergies/Adverse Reactions: No Known Allergies Allergy (Verified 11/20/19 18:50) Past Medical History - Social History Chew tobacco use (# tins/day): No Frequency of alcohol use: None Drug Abuse: None Renal/ Medical History: Denies: Hx Peritoneal Dialysis Psychiatric Medical History: Reports: Hx Depression - schizophrenia Physical Exam - Vital signs Vitals: Temp Pulse Resp BP Pulse Ox 98.4 F 94 16 148/103 H 100 11/20/19 18:38 11/20/19 18:38 11/20/19 18:38 11/20/19 18:38 11/20/19 18:38 Course - Vital Signs Vital signs: Temp Pulse Resp BP Pulse Ox 98.4 F 94 16 148/103 H 100 11/20/19 18:38 11/20/19 18:38 11/20/19 18:38 11/20/19 18:38 11/20/19 18:38
[2019-11-20 21:25] LABS: ACETAMINOPHEN < 10 ug/mL (10-30); ALCOHOL < 10 mg/dL (NONE DETECTED); SALICYLATE < 1.0 mg/dL (2.0-20.0)
[2019-11-20] MEDS ORDERED: OLANZAPINE 2.5 MG TABLET PO ONE (21:58)
--- NOTE | 2019-11-20 22:04 | ER Document Report ---
ED Psych Disorder / Suicide - General Mode of Arrival: Ambulatory TRAVEL OUTSIDE OF THE [place] IN LAST 30 DAYS: No - General Chief Complaint: Psych Problem Stated Complaint: WEAKNESS Time Seen by Provider: 11/20/19 18:52 Primary Care Provider: [facility] [Outside] - Follow up as needed Notes: Patient is a 39-year-old female that comes emergency department for chief complaint of generalized weakness. She was seen earlier today for the same and discharged from the emergency department after normal work-up. Patient has been seen multiple times recently in emergency department. She states that she just has felt weak for the past 10 days and like something is not right. Patient is very difficult to get a clear history from, unable to clearly answer or describe her symptoms, work-up earlier today, or situation at home. Patient denies suicidal ideations, homicidal ideations, hallucinations, or feeling unsafe at home. She states she is not on any home medications. She denies recreational drugs. She denies smoking or alcohol. She states right now she just feels tired, she has not been sleeping well, and she just wants to sleep. She states she does not want to go home tonight. (DILEEP WALSH) - Related Data Allergies/Adverse Reactions: No Known Allergies Allergy (Verified 11/20/19 18:50) Past Medical History - General Information source: Patient - Social History Smoking Status: Unknown if Ever Smoked Chew tobacco use (# tins/day): No Frequency of alcohol use: None Drug Abuse: None Lives with: Alone Family History: Reviewed & Not Pertinent Patient has suicidal ideation: No Patient has homicidal ideation: No Renal/ Medical History: Denies: Hx Peritoneal Dialysis Psychiatric Medical History: Reports: Hx Depression - schizophrenia, Hx Schizophrenia - Immunizations Immunizations up to date: Yes Hx Diphtheria, Pertussis, Tetanus Vaccination: Yes Review of Systems - Review of Systems Constitutional: See HPI EENT: No symptoms reported Cardiovascular: No symptoms reported Respiratory: No symptoms reported Gastrointestinal: No symptoms reported Genitourinary: No symptoms reported Female Genitourinary: No symptoms reported Musculoskeletal: No symptoms reported Skin: No symptoms reported Hematologic/Lymphatic: No symptoms reported Neurological/Psychological: See HPI Physical Exam - Vital signs Vitals: Temp Pulse Resp BP Pulse Ox 98.4 F 94 16 148/103 H 100 11/20/19 18:38 11/20/19 18:38 11/20/19 18:38 11/20/19 18:38 11/20/19 18:38 - Notes Notes: GENERAL: Alert, slightly restless but still cooperative HEAD: Normocephalic, atraumatic. EYES: Pupils equal, round, and reactive to light. Extraocular movements intact. ENT: Oral mucosa moist, tongue midline. Oropharynx unremarkable. Airway patent. NECK: Full range of motion. Supple. Trachea midline. LUNGS: Clear to auscultation bilaterally, no wheezes, rales, or rhonchi. No respiratory distress. HEART: Regular rate and rhythm. No murmur ABDOMEN: Soft, non-tender. Non-distended. EXTREMITIES: Moves all 4 extremities spontaneously. No edema, normal radial and dorsalis pedis pulses bilaterally. No cyanosis. BACK: no cervical, thoracic, lumbar midline tenderness. No saddle anesthesia, normal distal neurovascular exam. NEUROLOGICAL: Alert but not able to respond to orientation questions except her current location. Normal speech. Cranial nerves II through XII grossly intact. PSYCH: Disorganized thought process, disoriented to events today, restless, poor eye contact SKIN: Warm, dry, normal turgor. No rashes or lesions noted. (DILEEP WALSH) Course - Re-evaluation Re-evalutation: Patient is very cooperative, states she does not want to go home, states she just wants to sleep. She states she has been sleeping poorly. Patient is a difficult historian, has disorganized thought process, unable to clearly answer questions or give me a clear history. In addition to this nursing staff tells me that patient seemed to be talking to people who were not in the room. Patient does deny hallucinations, SI, HI. On review of previous records this showed that patient was diagnosed with schizophrenia and was previously on antipsychotic medications, she denies taking these at this time. I suspect her symptoms are secondary to schizophrenia and medication noncompliance. Patient will be given a dose of Zyprexa, she will remain here until the morning as she is requesting, mental health is been consulted. Between patient's work-up earlier today and work-up now along with her vital signs and physical evaluation patient is medically cleared pending mental health evaluation. (DILEEP WALSH) 11/21/19 09:57 Pt is alert and cooperative. She is safe for follow up. She has rested here overnight and has been evaluated by the psychiatric team. They have arranged outpt follow up for this nice lady that is not suicidal or homicidal and is currently not acutely psychotic. She also knows to return here for problems or concerns. (SREE FIGUEROA) - Vital Signs Vital signs: Temp Pulse Resp BP Pulse Ox 98.3 F 78 18 136/74 H 98 11/21/19 06:52 11/21/19 09:00 11/21/19 09:00 11/21/19 09:00 11/21/19 09:00 - Laboratory Laboratory results interpreted by me: 11/20/19 20:39 Salicylates < 1.0 L Acetaminophen < 10 L Discharge - Discharge Clinical Impression: Noncompliance with medication regimen Schizophrenia Qualifiers: Schizophrenia type: unspecified Qualified Code(s): F20.9 - Schizophrenia, unspecified Condition: Stable Disposition: HOME, SELF-CARE Additional Instructions: You have been evaluated by both medical and behavioral health teams and have been deemed appropriate for discharge. While in the emergency department you received the following services: Medical screening and assessment, nursing services, dietary services, pharmacological services, one-on-one counseling and/or psychotherapy, and environmental services. You have been provided with a mental resource list. You are encouraged to reach out to a mental health provider if you decide you need mental health services and/or medication management. The contact information for mobile crisis has been provided, as needed. AT ANY TIME, IF YOUR SYMPTOMS CHANGE SIGNIFICANTLY OR WORSEN OR YOU DEVELOP NEW SYMPTOMS, RETURN TO THE EMERGENCY DEPARTMENT IMMEDIATELY FOR RE-EVALUATION. Referrals: [facility] [Outside] - Follow up as needed
--- NOTE | 2019-11-21 09:18 | PSYCHOLOGICAL NOTE ---
Psych Note - Psych Note Date seen by psych provider: 11/21/19 Time seen by psych provider: 06:45 Psych Note: Patient is a 39-year-old female who presents to ED via POV for medical complaints. Patient was discharged and subsequently returned to ED with same medical complaints. Patient was last evaluated by behavioral health on 11/15/2019. Patient was easily arousable when clinician entered room. Patient reports she is "not that good." Patient describes medical concerns for "being weak, not eating, and can't walk." Patient was informed that the medical team will address her medical concerns. Patient states her medical concerns are not being addressed. Patient expressed a concern that she may have cancer. Clinician offered assistance with mental health concerns. Patient states she was "diagnosed Schizophrenic from [facility]." Patient denies concerns with symptoms of Schizophrenia. Patient declined medication recommendations and reported no symptoms related to Schizophrenia diagnosis and reports her symptoms were more depression and anxiety related. Patient denied recent triggers and/or stressors. Patient states she has thoughts of suicide but has no plan or intent to commit suicide. Patient denies auditory and/or visual hallucinations. Patient denies recent substance use. Please note patient UDS was negative for substances. Patient states she has stable housing and access to food. Update: 10:04- Clinician provided patient with mental health resource list. Patient states she is not ready for discharge as she is still feeling unwell. Patient began explaining medical concerns again. Clinician informed patient that she would be seen by a medical provider. Patient stated that she needed additional testing for her medical concerns. Patient commented that she had nowhere to go. Clinician asked patient to clarify statement and reminded patient that she had told clinician earlier that she has stable housing and access to food. Patient deflected conversation. Clinician attempted to provide resources for the homeless fdc, which patient declined. Patient is alert and oriented to person, place, time and circumstance. Patient's mood is normal with congruent affect. Patient endorses suicidal ideation with no plan or desire. Patient denies homicidal ideation. Delusions are absent and behavior is congruent with an intact reality based presentation (i.e., organized and linear through processes). There is no observed behavior that suggests patient is responding to internal stimuli. Patient is able to engage in organized, rational thought processes. Patient is able to express needs and wants in a logical manner. Patient denies current auditory and visual hallucinations. Eye contact is limited. Conversational speech is within normal rate, tone, and prosody, however clinician notes patient repeats questions before answering. Intellectual ability appears to be within average range. Attention and concentration are good. Insight, judgment and impulse control are currently good. Clinician notes pungent body odor as patient was walking away. Update: 11:15- Clinician was notified by liaison in [facility] that patient is in [facility] asking for her discharge papers. Clinician verified with nurse that patient was provided with discharge papers. Clinician met with patient in [facility] who asked for clinician's notes to take to [facility] "since I told you I was suicidal." Clinician stated that patient did not report that she was suicidal, and then reminded patient that she said she was having suicidal thoughts but no plan or desire to commit suicide. Patient was again was informed she could voluntarily present to [facility] which is across the street, patient declined. Patient was informed that she could request her medical records through the medical records department, or she could sign a release of information at [facility]. Patient verbalized understanding. Please note patient also denied SI with 2 attending physicians. UPDATE 13:50- Per verbal report from security system engineer Alan, the cab voucher provided to patient to assist with transportation costs to her home was taken by security system engineerChon due to the fact patient did not get into the cab upon arrival. Patient refused to voluntarily give cab voucher when asked. Patient expected the cable supervisor to wait until patient's mother arrived. Impression/Plan: Patient is cleared from acute psychiatric services. There is no observed behavior that suggests patient is responding to internal stimuli. Patient engaged in organized, rational, linear thought processes and was able to express needs and wants in a logical manner as evidenced by her ability to articulate her medical concerns and frustration that her medical concerns are not being met to the degree she expects, and her ability to state she does not want to go home tonight and wishes to sleep in the ED. Patient denies auditory/visual hallucinations, and patient's past disclosures of symptoms have not congruent with known manifestations of auditory/visual hallucinations. Clinician encouraged patient to contact [facility] for medication management (to include Suboxone) and mental health services. Clinician reminded patient of [facility]. Patient declined resource sheet that contains information regarding the homeless fdc. Please note patient has significant urinary tract infection that has been present since patient's last admission on 11/15/2019 (patient has not filled prescription for antibiotics). Patient was provided with a cab voucher to her home in [place] and verbalized a plan to self refer to [facility]. CAB VOUCHER HAD TO BE TAKEN AWAY BY SECURITY. Dr. Jaramillo was consulted on the care and management of this patient; attending physician is in agreement with recommendations and disposition.
[2019-11-21 09:40] VITALS: BP 136/74
[2019-11-21 09:56] LABS: APPEARANCE,URINE CLEAR; BILIRUBIN,URINE NEGATIVE (NEGATIVE); GLUCOSE, URINE NEGATIVE (NEGATIVE); KETONES,URINE NEGATIVE (NEGATIVE); LEUKOCYTE ESTERASE,URINE TRACE (NEGATIVE); NITRITE,URINE NEGATIVE (NEGATIVE); PROTEIN,URINE 100 mg/dL (NEGATIVE); URINE SPECIFIC GRAVITY 1.019
[2019-11-21 09:57] LABS: COLOR,URINE RED
== END 2019-11-21 10:30 | disposition home or self-care (01) ==
LOC: ER 18:14
DX: F20.9 Schizophrenia, unspecified (principal); Z91.14 Patient's other noncompliance with medication regimen; R53.1 Weakness; R53.83 Other fatigue
CPT/HCPCS: 36415; 80307 ×3; 81001; J3490; 99284

== ENCOUNTER 2020-01-13 20:53 | Emergency (ER) | payer MEDICAID ==
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
[2020-01-13 22:57] LABS: ALBUMIN 4.4 g/dL (3.5-5.0); ALKALINE PHOSPHATASE 70 U/L (38-126); ANION GAP 5 (5-19); ASPARTATE AMINO TRANSFERASE 29 U/L (14-36); BILIRUBIN,TOTAL 0.4 mg/dL (0.2-1.3); BLOOD UREA NITROGEN 18 mg/dL (7-20); CALCIUM 9.2 mg/dL (8.4-10.2); CARBON DIOXIDE 27 mmol/L (22-30); CHLORIDE 106 mmol/L (98-107); GLUCOSE 102 mg/dL (75-110); POTASSIUM 3.6 mmol/L (3.6-5.0); TOTAL PROTEIN 7.6 g/dL (6.3-8.2)
[2020-01-13 22:59] LABS: ACETAMINOPHEN < 10 ug/mL (10-30); ALCOHOL < 10 mg/dL (NONE DETECTED); SALICYLATE < 1.0 mg/dL (2.0-20.0)
[2020-01-13 23:12] LABS: ABSOLUTE EOSINOPHILS # (AUTO) 0.1 10^3/uL (0.0-0.6); ABSOLUTE LYMPHOCYTES (AUTO) 1.9 10^3/uL (0.5-4.7); ABSOLUTE MONOCYTES (AUTO) 0.6 10^3/uL (0.1-1.4); ABSOLUTE NEUT (AUTO) 5.2 10^3/uL (1.7-8.2); BASOPHILS % (AUTO) 0.2 % (0-2); EOSINOPHILS % (AUTO) 1.4 % (0-6); HEMATOCRIT 35.4 % (36.0-47.0); HEMOGLOBIN 12.6 g/dL (12.0-15.5); LYMPHOCYTES % (AUTO) 24.5 % (13-45); MEAN CORPUSCULAR HEMOGLOBIN 32.3 pg (27.0-33.4); MEAN CORPUSCULAR HGB CONC 35.7 g/dL (32.0-36.0); MEAN CORPUSCULAR VOLUME 91 fl (80-97); MONOCYTES % (AUTO) 7.2 % (3-13); PLATELET COUNT 179 10^3/uL (150-450); RED BLOOD COUNT 3.91 10^6/uL (3.72-5.28); RED CELL DISTRIBUTION WIDTH 14.8 % (11.5-14.0); SEGMENTED NEUTROPHILS % (AUTO) 66.7 % (42-78); TOTAL CELLS COUNTED % (AUTO) 100 %; WHITE BLOOD COUNT 7.8 10^3/uL (4.0-10.5)
[2020-01-14 07:11] LABS: APPEARANCE,URINE SLIGHTLY-CLOUDY; BILIRUBIN,URINE NEGATIVE (NEGATIVE); COLOR,URINE YELLOW; GLUCOSE, URINE NEGATIVE (NEGATIVE); KETONES,URINE NEGATIVE (NEGATIVE); LEUKOCYTE ESTERASE,URINE NEGATIVE (NEGATIVE); NITRITE,URINE NEGATIVE (NEGATIVE); PROTEIN,URINE NEGATIVE (NEGATIVE); URINE SPECIFIC GRAVITY 1.009; UROBILINOGEN,URINE NEGATIVE mg/dL (<2.0)
[2020-01-14 07:14] LABS: URINE AMPHETAMINES SCREEN NEGATIVE; URINE BARBITURATES SCREEN NEGATIVE; URINE BENZODIAZEPINES SCREEN NEGATIVE; URINE COCAINE SCREEN NEGATIVE; URINE MARIJUANA (THC) SCREEN NEGATIVE; URINE METHADONE SCREEN NEGATIVE; URINE PHENCYCLIDINE SCREEN NEGATIVE
--- NOTE | 2020-01-14 08:12 | EKG REPORT ---
SEVERITY:- ABNORMAL ECG - SINUS RHYTHM NONSPECIFIC INTRAVENTRICULAR CONDUCTION DELAY BORDERLINE INFERIOR Q WAVES MINIMAL ST DEPRESSION, DIFFUSE LEADS : Confirmed by: Ousmane Campbell MD 14-Jan-2020 08:11:26
--- NOTE | 2020-01-14 17:15 | ER Document Report ---
Doctor's Note Notes: 01/14/20 10:13 PHYSICAL EXAMINATION: GENERAL: Appears well, healthy, well-nourished, no acute distress. LUNGS: Equal breath sounds bilaterally and clear to auscultation. No wheezes rales or rhonchi. CARDIOVASCULAR: S1-S2, regular rate, regular rhythm. Radial pulses 2+, normal. ABDOMEN: Normoactive bowel sounds. Soft, nontender, no guarding, no rebound tenderness, and no masses palpated. PSYCH: Patient attempts to be manipulative in her words. Appears angry. Patient is currently in four-point restraints. I attempted to speak her calmly and she became angry at me and was starting to yell. At this time, we will keep the patient in restraints until mental health is able to evaluate her. 01/14/20 17:13 No medication recommendations at this time. Patient is out of four-point restraints and is calm in the room. Mental health states that the patient will be watched overnight.
[2020-01-14] MEDS ORDERED: LORAZEPAM INJ 2 MG/1 ML VIAL IM ONE (17:58)
[2020-01-14] MEDS ORDERED: HALOPERIDOL LACTATE INJ 5 MG/1 ML VIAL IM ONE (17:58)
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
[2020-01-14] MEDS ORDERED: HALOPERIDOL LACTATE INJ 5 MG/1 ML VIAL IM PRN (21:25)
[2020-01-14] MEDS ORDERED: BENZTROPINE MESYLATE 1 MG TABLET PO PRN (23:55)
--- NOTE | 2020-01-15 17:06 | ER Document Report ---
Doctor's Note Notes: 01/15/20 17:05 PHYSICAL EXAMINATION: GENERAL: Appears well, healthy, well-nourished, no acute distress. LUNGS: Equal breath sounds bilaterally and clear to auscultation. No wheezes rales or rhonchi. CARDIOVASCULAR: S1-S2, regular rate, regular rhythm. Radial pulses 2+, normal. ABDOMEN: Normoactive bowel sounds. Soft, nontender, no guarding, no rebound tenderness, and no masses palpated. PSYCH: Labile mood. Patient gets easily angry. Patient is asking for mask. Educated patient that she does not need mask at this time. Patient has PRN Haldol ordered. No new recommendations for mental health. Awaiting placement. Patient is placed on full IVC, as per mental health recommendation.
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
--- NOTE | 2020-01-16 11:31 | ER Document Report ---
Doctor's Note Notes: 01/16/20 10:31 Patient is resting quietly in the room at this time, no distress, breakfast at bedside
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
[2020-01-16] MEDS ORDERED: CHLORPROMAZINE HCL INJ 25 MG/1 ML AMPULE IM PRN (14:23)
[2020-01-16] MEDS ORDERED: BENZTROPINE MESYLATE INJ 2 MG/2 ML AMPULE IM SCH (14:30)
[2020-01-16] MEDS ORDERED: OLANZAPINE INJ/PF 10 MG SDV IM SCH (18:00)
[2020-01-16 19:37] VITALS: BP 110/66
== END 2020-01-16 19:35 | disposition home or self-care (01) ==
LOC: ER 20:53
DX: R45.851 Suicidal ideations (principal); F60.2 Antisocial personality disorder; R44.0 Auditory hallucinations; F17.200 Nicotine dependence, unspecified, uncomplicated
CPT/HCPCS: 93005; 99285; 96372; 36415; 80307 ×4; 85025; 80053; 81001; 93010; J0515; J1630; J2060; J3490

== ENCOUNTER 2020-01-16 21:08 | Emergency (ER) | payer MEDICAID ==
[2020-01-16 22:38] LABS: APPEARANCE,URINE CLOUDY; BILIRUBIN,URINE NEGATIVE (NEGATIVE); COLOR,URINE YELLOW; GLUCOSE, URINE NEGATIVE (NEGATIVE); KETONES,URINE NEGATIVE (NEGATIVE); PROTEIN,URINE NEGATIVE (NEGATIVE); URINE SPECIFIC GRAVITY 1.025; UROBILINOGEN,URINE NEGATIVE mg/dL (<2.0)
[2020-01-16] MEDS ORDERED: PHENAZOPYRIDINE HCL 200 MG TABLET PO ONE (22:42)
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
[2020-01-16 23:12] VITALS: BP 101/72
== END 2020-01-16 23:15 | disposition home or self-care (01) ==
LOC: ER 21:08
DX: R30.0 Dysuria (principal); R39.198 Other difficulties with micturition
CPT/HCPCS: 99283; 87086; 81025; 87088; 81001; J3490

== ENCOUNTER 2020-01-19 15:25 | Emergency (ER) | payer MEDICAID ==
[2020-01-19 15:31] VITALS: BP 108/79
--- NOTE | 2020-01-19 15:38 | ER Document Report ---
ED Medical Screen (RME) - General Chief Complaint: Psych Problem Stated Complaint: PSYCH EVAL Time Seen by Provider: 01/19/20 15:30 Primary Care Provider: [facility] [Provider Group] - Follow up as needed [facility] [Provider Group] - Follow up as needed [facility] [Provider Group] - Follow up as needed [facility] [Provider Group] - Follow up as needed Mode of Arrival: Medic Information source: Patient Notes: 40-year-old female presented to ED for complaint of very minimal right ankle pain. She is walking with a even steady gait. She states she does not have any place to stay but she was told that the homeless senior care opens at 6:00 and that she plans to go there at that time. She would not answer most questions asked and when she did at answer it was after hesitation and then what looked like pill-rolling with her hand. I have consulted the [facility] licensed clinical social work job titles who came and spoke with the patient. She states the patient is at her baseline but this is nothing new and strange. She denied suicidal or homicidal ideation.. According to the EMS [facility] found her in the exact same place today as they did yesterday and she was not moving around and so they were concerned and brought her to the emergency room. TRAVEL OUTSIDE OF THE [place] IN LAST 30 DAYS: No - HPI Onset: Other Quality of pain: Achy Severity: Mild Pain Level: 1 Associated Symptoms: Other - Right ankle pain would like an Thong wrap Exacerbated by: Movement, Walking Similar symptoms previously: Yes Recently seen / treated by doctor: Yes - Related Data Smoking: Greater than 1 pack/day Frequency of alcohol use: None Drug Abuse: None Allergies/Adverse Reactions: No Known Allergies Allergy (Verified 01/15/20 07:31) Past Medical History - General Information source: Patient - Social History Cigarette use (# per day): Yes - Pack per day Frequency of alcohol use: None Drug Abuse: None Lives with: Homeless Family history: Reviewed & Not Pertinent - Past Medical History Cardiac Medical History: Reports: None Pulmonary Medical History: Reports: None EENT Medical History: Reports: None Neurological Medical History: Reports: None Endocrine Medical History: Reports: None Renal/ Medical History: Reports: None Malignancy Medical History: Reports: None GI Medical History: Reports: None Musculoskeltal Medical History: Reports None Skin Medical History: Reports None Psychiatric Medical History: Reports: Hx Depression, Hx Schizophrenia Traumatic Medical History: Reports: None Infectious Medical History: Reports: None Surgical Hx: Negative Past Surgical History: Reports: None - Immunizations Immunizations up to date: Yes Hx Diphtheria, Pertussis, Tetanus Vaccination: Yes Review of Systems - Review of Systems Constitutional: No symptoms reported EENT: No symptoms reported Cardiovascular: No symptoms reported Respiratory: No symptoms reported Gastrointestinal: No symptoms reported Genitourinary: No symptoms reported Female Genitourinary: No symptoms reported Musculoskeletal: Ankle swelling - Mild right ankle pain uses x-ray Skin: No symptoms reported Hematologic/Lymphatic: No symptoms reported Neurological/Psychological: No symptoms reported -: Yes All other systems reviewed and negative Physical Exam - Vital signs Vitals: Temp Pulse Resp BP Pulse Ox 98.9 F 94 16 108/79 97 01/19/20 15:29 01/19/20 15:29 01/19/20 15:29 01/19/20 15:29 01/19/20 15:29 Interpretation: Normal - General General appearance: Appears well, Alert - HEENT Head: Normocephalic, Atraumatic Eyes: Normal Pupils: PERRL - Respiratory Respiratory status: No respiratory distress Chest status: Nontender Breath sounds: Normal Chest palpation: Normal - Cardiovascular Rhythm: Regular Heart sounds: Normal auscultation Murmur: No - Abdominal Inspection: Normal Distension: No distension Bowel sounds: Normal Tenderness: Nontender Organomegaly: No organomegaly - Back Back: Normal, Nontender - Extremities General upper extremity: Normal inspection, Nontender, Normal color, Normal ROM, Normal temperature General lower extremity: Normal color, Normal ROM, Normal temperature, Normal weight bearing. No: Guevara's sign Ankle: Tender. No: Limited ROM, Unable to bear weight - Neurological Neuro grossly intact: Yes Cognition: Normal Orientation: AAOx4 [place] Coma Scale Eye Opening: Spontaneous [place] Coma Scale Verbal: Oriented [place] Coma Scale Motor: Obeys Commands [place] Coma Scale Total: 15 Speech: Normal Motor strength normal: LUE, RUE, LLE, RLE Sensory: Normal - Psychological Associated symptoms: Normal affect, Normal mood - Skin Skin Temperature: Warm Skin Moisture: Dry Skin Color: Normal Course - Vital Signs Vital signs: Temp Pulse Resp BP Pulse Ox 98.9 F 94 16 108/79 97 01/19/20 15:29 01/19/20 15:29 01/19/20 15:29 01/19/20 15:29 01/19/20 15:29 Procedures - Immobilization Right Ankle Time completed: 15:47 Immobilizer type: Thong wrap Performed by: [facility] Vasc Exam: Normal Alignment checked and good: Yes Doctor's Discharge - Discharge Clinical Impression: ankle discomfort Condition: Stable Disposition: HOME, SELF-CARE Additional Instructions: You were seen today for some mild ankle pain. You stated you did not need an x- ray. You are walking with a even steady gait there is no obvious injuries at this time. We are applying an Thong wrap as we discussed. This will help you with the discomfort. Thong Wrap A compression dressing (thong wrap) has been placed. This helps hold the area still. It limits swelling and internal bleeding. The wrap should be comfortably snug -- not tight. You should feel a sense of pressure, but not severe pain under the wrap. Unless the physician tells you otherwise, you can adjust the wrap for comfort. If the wrap causes symptoms suggesting it's too tight -- uncomfortable pressure, swelling or discoloration beyond the wrap, numbness, or severe pain -- you must loosen the wrap. If these symptoms don't resolve promptly, return for re-evaluation. Acetaminophen Acetaminophen may be taken for pain relief or fever control. It's much safer than aspirin, offering a wider range of "safe" dosages. It is safe during . Some brand names are Tylenol, Panadol, Datril, Anacin 3, Tempra, and Liquiprin. Acetaminophen can be repeated every four hours. The following are maximum recommended dosages: WEIGHT Dose Drops Elixir Chewable(80mg) (LBS.) drprs=droppers tsp=teaspoon 6 40 mg .4 ml (1/2) 6-11 80 mg .8 ml (full) 1/2 tsp 1 tab 12-16 120 mg 1 1/2 drprs 3/4 tsp 1 1/2 tabs 17-23 160 mg 2 drprs 1 tsp 2 tabs 24-30 240 mg 3 drprs 1 1/2 tsp 3 tabs 30-35 320 mg 2 tsp 4 tabs 36-41 360 mg 2 1/4 tsp 4 1/2 tabs 42-47 400 mg 2 1/2 tsp 5 tabs 48-53 480 mg 3 tsp 6 tabs 54-59 520 mg 3 1/4 tsp 6 1/2 tabs 60-64 560 mg 3 1/2 tsp 7 tabs 65-70 600 mg 3 3/4 tsp 7 1/2 tabs 71-76 640 mg 4 tsp 8 tabs 77-82 720 mg 4 1/2 tsp 9 tabs 83-88 800 mg 5 tsp 10 tabs >89 pounds or adults 650 mg to 900 mg Acetaminophen can be repeated every four hours. Maximum daily dose not to exceed 4000 mg. These maximum recommended dosages are slightly higher than the dosages written on the product container, but these dosages are very safe and well below the toxic dosage for acetaminophen. FOLLOW-UP CARE: If you have been referred to a physician for follow-up care, call the physicians office for an appointment as you were instructed or within the next two days. If you experience worsening or a significant change in your symptoms, notify the physician immediately or return to the Emergency Department at any time for re-evaluation. Referrals: [facility] [Provider Group] - Follow up as needed [facility] [Provider Group] - Follow up as needed [facility] [Provider Group] - Follow up as needed [facility] [Provider Group] - Follow up as needed
--- NOTE | 2020-01-19 16:37 | PSYCHOLOGICAL NOTE ---
<BETTY HERNANDEZ - Last Filed: 01/19/20 16:31> Psych Note - Psych Note Date seen by psych provider: 01/19/20 Time seen by psych provider: 15:40 Psych Note: Reason For Consult:Verbal request for Odd presentation Patient reports she hurt her ankle so was brought in. She confirms she is currently living in her car and states she has had no contact with her parents. Patient denies any thoughts of wanting to harm herself or others. When asked a bout hallucinations or delusions (ie seeing or hearing anything that is confusing or scary) patient denies then states she is having some disorganized thought processes. Patient asks for something to drink because she is really thirsty; when asked if she as a preference she stated "no anything will be fine, juice or Coca-Cola, anything really I am just really thirsty." When clinician came back with some food and drink for patient, patient was speaking to patient access. Patient turned to clinician and stated, I forgot to tell you, I am schizophrenic and having some difficulty with disorganized thinking. I think I need an evaluation" Clinician reminded patient that she did disclose this to clinician, she had an evaluation and it was recommended that the patient eat as it may help her feel better. Patient is alert and orientated to person, place, time and circumstance. Mood is euthymic with congruent affect. Patient denies suicidal and homicidal ideation. She presents disheveled and un-bathed (her feet are covered in dirt). Delusions are absent and behaviors congruent with an intact reality based presentation ie organized, linear and logical thought process. Patient is clearly able to communicate her thoughts, wants and needs as demonstrated by full complete sentences, requesting something to drink etc. Eye contact is poor (patient avoids looking at clinician by looking down into her lap). Conversational speech is slow and halting at times, but when she wants something it is normal rate tone and prosody. Intellectual abilities appear to be within the average range. Attention and concentration are fair. Insight, judgment, impulse control are fair. Impression\\plan: Patient is cleared from acute psychiatric services. Patient is presenting baseline. Patient has a history of being behavioral and falsely demonstrating psychosis in an attempt at using inpatient psychiatric treatment to meet her secondary needs (ie getting away from her family and negating legal issues). Clinician notes that the patient is able to clearly articulate her wants in full complete sentences in a normal conversational rate and tone (ie when asking for something to drink or disclosing her desire to be evaluated). She denies any thoughts of wanting to harm herself or others. 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 There has been a referral for the patient submitted to [facility] for continued assistance out in the community. Patient was provided a lunch bag of food and drink. Dr. Jaramillo was consulted to care management of this patient; attending physicians in agreement with recommendations and disposition. <RISHABH JARAMILLO - Last Filed: 01/20/20 12:15> Psych Note - Psych Note Psych Note: This Clinician received a text message from patient's mother this same evening (01.19.2020 @ 8:08 pm) asking if this clinician "called in" a 30-day supply of patient's medications to [facility]. Mother was advised this clinician was not able to provide any information to her per HIPAA. Mother, Anna Sen ([phone]) advised patient was currently at [facility], had been off her medications for 2 days and had been living in her car and now lost her car and everything in it. I reminded mother she had a restraining order in place for her own protection for a reason and that patient's situation is a result of her own choices, whatever her situation is. I relayed to her in general that at times many people find their way when the only way they have to go is up. If indeed she is at [place], they will provide her resources for whatever needs she might have. That was end of communication.
== END 2020-01-19 15:52 | disposition home or self-care (01) ==
LOC: ER 15:25
DX: M25.571 Pain in right ankle and joints of right foot (principal); F29 Unspecified psychosis not due to a substance or known physiological condition; F17.210 Nicotine dependence, cigarettes, uncomplicated
CPT/HCPCS: 99284